=== PATIENT | female | born 1995 | race Two or more races ===

== ENCOUNTER 2021-08-20 11:51 | Emergency (ER) | payer OTHER ==
[~2021-08-20] VITALS: Ht 160 cm; Wt 49.0 kg
[2021-08-20] MEDS ORDERED: KETOROLAC TROMETH 60MG/2ML VIAL IM ONE (12:30)
[2021-08-20 12:54] VITALS: BP 151/86
[2021-08-20] MEDS ORDERED: METH750T22 PO (13:50)
[2021-08-20] MEDS ORDERED: IBUP800T27 PO (13:50)
== END 2021-08-20 14:04 | disposition home or self-care (01) ==
LOC: EDBD 11:51 → ER 11:51
DX: S29.012A Strain of muscle and tendon of back wall of thorax, initial encounter (principal); S20.219A Contusion of unspecified front wall of thorax, initial encounter; S80.12XA Contusion of left lower leg, initial encounter; Z79.1 Long term (current) use of non-steroidal anti-inflammatories (NSAID); Z79.899 Other long term (current) drug therapy; V49.9XXA Car occupant (driver) (passenger) injured in unspecified traffic accident, initial encounter; Y93.89 Activity, other specified; Y92.410 Unspecified street and highway as the place of occurrence of the external cause; Y99.8 Other external cause status
CPT/HCPCS: 71045; 72070; 73590; 96372; 99284; J1885